=== PATIENT | female | born 1985 | race Caucasian/White ===

== ENCOUNTER 2022-11-22 16:22 | Outpatient (CLI) | payer BC, MEDICAID, SELFPAY ==
--- NOTE | 2022-11-22 16:00 | USR_ITS ---
PROCEDURE INFORMATION: Exam: US Duplex Right Upper Extremity Veins, Limited Exam date and time: 11/22/2022 5:28 PM Age: 37 years old Clinical indication: Hand; Right; Patient HX: PT thumb discolored(black/purplish) with pain; Additional info: I82.629 - acute embolism and thrombosis of deep veins of . . . , called insurance no pa required per automated service phone TECHNIQUE: Imaging protocol: Real-time duplex ultrasound of the right Upper Extremity with 2-D parikh scale, color Doppler flow and spectral waveform analysis with image documentation. Limited exam focused on the right upper extremity veins. COMPARISON: No relevant prior studies available. FINDINGS: Right deep veins: Unremarkable. Axillary, brachial, radial and ulnar veins are patent throughout without thrombus. Normal Doppler waveforms. Normal compressibility and/or augmentation response. Visualized internal jugular and subclavian veins are patent. Superficial veins: Unremarkable. Visualized cephalic and basilic veins are patent without thrombus. Soft tissues: Unremarkable. US/[place] [id number] IMPRESSION: No sonographic evidence of deep vein thrombosis.
== END 2022-11-22 16:23 | disposition home or self-care (01) ==
PROVIDERS: PCP Nurse Practitioner Family; Visit Provider Nurse Practitioner Family
DX: I82.621 Acute embolism and thrombosis of deep veins of right upper extremity (principal)
CPT/HCPCS: 93971

== ENCOUNTER → 2022-12-07 16:23 | Outpatient (BNVA) | payer BC, MEDICAID, SELFPAY | PROVIDERS: PCP Nurse Practitioner Family; Visit Provider Nurse Practitioner Family | DX: L81.9 Disorder of pigmentation, unspecified (principal); M79.643 Pain in unspecified hand | CPT/HCPCS: 80053; 85025; 86160; 86162; 86235; 86255; 86376; 86431; 86705; 86706; 86709; 86803; 87340 ==

== ENCOUNTER → 2023-07-18 14:29 | Outpatient (BNVA) | payer BC, MEDICAID, SELFPAY | PROVIDERS: PCP Nurse Practitioner Family; Visit Provider Nurse Practitioner Family | DX: Z12.4 Encounter for screening for malignant neoplasm of cervix | CPT/HCPCS: 87070; 87205; 88175 ==